=== PATIENT | female | born 1995 | race Asian ===

== ENCOUNTER 2016-10-01 13:52 | Emergency (ER) | payer OTHER ==
[~2016-10-01] VITALS: Ht 154.9 cm; Wt 47.7 kg
[2016-10-01 13:54] VITALS: BP 110/75
== END 2016-10-01 16:02 | disposition home or self-care (01) ==
LOC: ED 15:56
DX: L24.9 Irritant contact dermatitis, unspecified cause (principal); L20.84 Intrinsic (allergic) eczema
CPT/HCPCS: 99283